=== PATIENT | female | born 1960 | race Caucasian/White ===

== ENCOUNTER → 2023-11-09 12:16 | Outpatient (REF) | payer OTHER, SELFPAY | LOC: HWRAD 12:16 | PROVIDERS: ATTENDING PHYSICIAN Nurse Practitioner Family | DX: M81.0 Age-related osteoporosis without current pathological fracture (principal) | CPT/HCPCS: 77080 ==

== ENCOUNTER → 2024-02-17 09:23 | Outpatient (REF) | payer OTHER, SELFPAY | LOC: HWWDC 09:23 | PROVIDERS: ATTENDING PHYSICIAN Obstetrics & Gynecology Gynecology; FAMILY PHYSICIAN Nurse Practitioner Family | DX: Z12.31 Encounter for screening mammogram for malignant neoplasm of breast (principal) | CPT/HCPCS: 77063; 77067 ==

== ENCOUNTER → 2025-04-30 19:35 | Outpatient (REF) | payer OTHER, SELFPAY | LOC: WDC 19:35 | PROVIDERS: ATTENDING PHYSICIAN Obstetrics & Gynecology Gynecology; FAMILY PHYSICIAN Nurse Practitioner Family | DX: Z12.31 Encounter for screening mammogram for malignant neoplasm of breast (principal) | CPT/HCPCS: 77063; 77067 ==